=== PATIENT | male | born 1935 | race Caucasian/White ===

== ENCOUNTER 2021-03-04 18:35 | Inpatient (IN) | payer MEDICARE, BC, OTHER ==
[2021-03-04 19:06] VITALS: BMI 25.7
[2021-03-04] MEDS ORDERED: SODIUM CHLORIDE 2,585 ML IV ONE (19:21)
[2021-03-04] MEDS ORDERED: PIPERACILLIN/TAZOB 3.375 GM 3.375 GM in DEXTROSE 5%-WATER - 50 ML IVPB ONE (19:28)
[2021-03-04] MEDS ORDERED: NOREPINEPHRINE BITARTRATE 4 MG/4 ML ML IV ONE (19:30)
[2021-03-04] MEDS ORDERED: NOREPINEPHRINE BITARTRATE 8,000 MCG/500 ML BAG IVPB SCH (19:30)
[2021-03-04] MEDS ORDERED: VANCOMYCIN 1 GM in D5W (PRE-DOCKED) 1,000 MG/250 ML IVPB ONE (19:40)
[2021-03-04 20:01] LABS: HEMOGLOBIN 7.2 GM/dL (11.7-16.9)
[2021-03-04] MEDS ORDERED: PIPERACILLIN/TAZOB 3.375 GM 3.375 GM/50 ML BAG IVPB ONE (20:07)
[2021-03-04] MEDS ORDERED: VANCOMYCIN 1 GRAM (PRE-DOCKED) 1,000 MG/250 ML BAG IVPB ONE (20:07)
[2021-03-04 20:08] LABS: HEMATOCRIT 23.9 % (35.4-49); MCHC 30.2 g/dl (32.0-35.9); MEAN CELL VOLUME 95.9 fl (80-96); RBC 2.49 M/mm3 (4.00-5.60); RDW 20.8 % (11.9-15.9)
[2021-03-04 20:22] LABS: CALCIUM 9.9 mg/dL (8.5-10.1)
[2021-03-04 20:23] LABS: ALBUMIN 1.2 g/dl (3.4-5.0); BLOOD UREA NITROGEN 94.5 mg/dL (7-18); PROTHROMBIN TIME (PATIENT) 50.9 SEC (9.7-13.0)
[2021-03-04 20:27] LABS: BILIRUBIN,TOTAL 0.5 mg/dL (0.2-1); TOT PROT 4.6 g/dl (6.4-8.2)
[2021-03-04 20:32] LABS: INR 4.39 (0.83-1.09)
[2021-03-04 20:47] LABS: CREATININE 1.6 mg/dL (0.55-1.3)
[2021-03-04] MEDS ORDERED: VASOPRESSIN 20 UNITS/ML VIAL IV ONE (20:48)
[2021-03-04] MEDS ORDERED: VASOPRESSIN 40 UNITS in SODIUM CHLORIDE 98 ML IVPB SCH (21:00)
[2021-03-04] MEDS ORDERED: POTASSIUM CHLORIDE 20 MEQ PREMIX IVPB 100 ML IVPB ONE (21:03)
[2021-03-04 21:16] LABS: ANISOCYTOSIS 2+; MACROCYTOSIS 1+; OVALOCYTE 1+; PLATELET ESTIMATE NORMAL
[2021-03-04 21:21] LABS: TOXIC GRANULATION 1+
[2021-03-04] MEDS ORDERED: KCL 10 MEQ IVPB 20 MEQ/200 ML INFUS.BAG IVPB ONE (21:23)
[2021-03-04 21:24] LABS: WHITE BLOOD COUNT 15.3 K/mm3 (4.0-10.0)
[2021-03-04 21:32] LABS: LACTIC ACID 7.6 mmol/L (0.4-2.0)
[2021-03-04] MEDS ORDERED: EPINEPHrine/PF 1 MG/1 ML (1:1,000) AMPULE ONE (21:33)
[2021-03-04] MEDS ORDERED: MUPIROCIN 2% TOPICAL OINTMENT FOR DECOLONIZATION NS SCH (22:15)
[2021-03-04 22:19] LABS: VENOUS BASE EXCESS -7.9 mmol/L (-2-2); VENOUS O2 SATURATION 22.9 % (70-80); VENOUS PCO2 68.5 mmHg (38-52)
[2021-03-04 22:21] LABS: VENOUS PH 7.114 (7.310-7.410)
[2021-03-04] MEDS ORDERED: ACETAMINOPHEN 1000 MG/100 ML VIAL (NON FORMULARY) IVPB PRN (22:24)
[2021-03-04] MEDS ORDERED: PHENYLEPHRINE NS PREMIX 10,000 MCG/100 ML BAG CVP SCH (23:45)
[2021-03-05] MEDS ORDERED: PHENYLEPHRINE NS PREMIX 50,000 MCG/500 ML BAG CVP SCH (00:30)
[2021-03-05] MEDS ORDERED: SODIUM BICARBONATE 8.4% - 50 ML ONE (03:40)
[2021-03-05 04:27] VITALS: BP 87/49; PULSE 70
[2021-03-05 05:20] VITALS: TEMP 97.2
[2021-03-05] MEDS ORDERED: ALBUTEROL SO4 0.083% IH SOL 2.5 MG/3 ML VIAL.NEB. NEB SCH (08:00)
[2021-03-05] MEDS ORDERED: PIPERACILLIN/TAZOB 2.25 GM 2.25 GM in DEXTROSE 5%-WATER - 50 ML IVPB SCH ×2 (08:00→10:00)
[2021-03-05] MEDS ORDERED: ASCORBIC ACID 500 MG/5 ML UNIT DOSE CUP GT SCH (10:00)
[2021-03-05] MEDS ORDERED: CHLORHEXIDINE GLUCONATE 4% CLEANSER FOR DECOLONIZATION TP SCH (22:00)
[2021-03-05] MEDS ORDERED: VANCOMYCIN 750 MG in DEXTROSE 5%-WATER - 150 ML IVPB SCH (22:33)
== END 2021-03-05 05:15 | disposition expired | DRG 871 ==
LOC: JER 18:35 → JERBED 21:26 → JICU 03-05 00:23
PROVIDERS: ADMIT Internal Medicine Pulmonary Disease; ATTEND Internal Medicine Pulmonary Disease
PROC: 06HN33Z Insertion of Infusion Device into Left Femoral Vein, Percutaneous Approach (ICD-10-PCS; principal; 2021-03-04)
PROC: 5A1935Z Respiratory Ventilation, Less than 24 Consecutive Hours (ICD-10-PCS; 2021-03-04)
PROC: 5A12012 Performance of Cardiac Output, Single, Manual (ICD-10-PCS; 2021-03-04)
DX: A41.89 Other specified sepsis (principal); L89.154 Pressure ulcer of sacral region, stage 4; R65.21 Severe sepsis with septic shock; N18.6 End stage renal disease; N17.9 Acute kidney failure, unspecified; I24.8 Other forms of acute ischemic heart disease; J96.11 Chronic respiratory failure with hypoxia; I13.2 Hypertensive heart and chronic kidney disease with heart failure and with stage 5 chronic kidney disease, or end stage renal disease; I25.10 Atherosclerotic heart disease of native coronary artery without angina pectoris; I48.91 Unspecified atrial fibrillation; K21.9 Gastro-esophageal reflux disease without esophagitis; I50.9 Heart failure, unspecified; R13.10 Dysphagia, unspecified; I44.7 Left bundle-branch block, unspecified; A69.0 Necrotizing ulcerative stomatitis; Z95.0 Presence of cardiac pacemaker; Z93.0 Tracheostomy status; Z86.73 Personal history of transient ischemic attack (TIA), and cerebral infarction without residual deficits; Z93.1 Gastrostomy status
CPT/HCPCS: 36415; 71045-TC-FY; 80053; 82803; 82962; 83605; 84484; 85025; 85610; 85730; 86850; 86900; 86901; 86922; 87040; 87070; 87186; 87205; 93005; 93010; 94002; 99291; C9803; U0003; U0005